=== PATIENT | male | born 1995 | race African-American/Black ===

== ENCOUNTER 2018-02-03 10:57 | Emergency (ER) | payer SELFPAY ==
--- NOTE | 2018-02-03 12:25 | CT ---
CT OF THE FACE WITH IV CONTRAST: Date: 02/03/18 INDICATION: Left eye pain since Thursday after a boxing match. FINDINGS: There is disruption of the medial orbital wall of the left orbit with some mucosal thickening and/or fluid in the left ethmoid air cells. This can be seen with medial orbital wall fractures. There is no herniation of the medial rectus. The retroorbital fat is preserved. The orbit is in place. The lense s are in place. The intraorbital floor and orbital rims are intact. The zygomatic arch is intact. The mandible is intact. The alveolar ridge of the maxilla is intact. The nasal bones are intact. Osseous nasal septum is healed. Mastoid air cells are clear. Visualized intracranial contents appear within normal limits. There is suspicion for a nondisplaced right nasal bone fracture. IMPRESSION: 1. Left medial orbital wall fracture with small amount of hemorrhage or fluid in the left ethmoid ai r cells. 2. Suspicion for a nondisplaced right nasal bone fracture POS: [facility]
[2018-02-03] MEDS ORDERED: ISOVUE-370 76%-LOCM 1 ML ONE (16:07)
== END 2018-02-03 12:44 | disposition home or self-care (01) ==
LOC: ERS 10:57
DX: S02.32XA Fracture of orbital floor, left side, initial encounter for closed fracture (principal); S02.2XXA Fracture of nasal bones, initial encounter for closed fracture; Y04.0XXA Assault by unarmed brawl or fight, initial encounter; Y93.71 Activity, boxing
CPT/HCPCS: 70487

== ENCOUNTER 2021-01-08 20:18 | Emergency (ER) | payer SELFPAY ==
[2021-01-08] MEDS ORDERED: Acetaminophen 500 MG TAB ONE (21:57)
[2021-01-09 08:03] LABS: SARS-CoV-2 PCR by NAA DETECTED (NotDetected)
== END 2021-01-08 22:00 | disposition home or self-care (01) ==
LOC: ERS 20:18
DX: U07.1 COVID-19 (principal)
CPT/HCPCS: 71046; U0003; U0005

== ENCOUNTER 2021-02-12 12:38 | Emergency (ER) | payer SELFPAY | END 2021-02-12 13:15 | disposition home or self-care (01) | LOC: ERS 12:38 | DX: M25.561 Pain in right knee (principal); M25.461 Effusion, right knee ==